=== PATIENT | male | born 1960 | race Caucasian/White ===

== ENCOUNTER → 2017-11-16 10:33 | Outpatient (CLI) | payer OTHER, SELFPAY ==
--- NOTE | 2017-11-16 11:21 | XR_ITS ---
XR hand RT min 3V HISTORY: ITS.REASON: pain ORDERING PHYSICIAN: Adrianna Flood PATIENT AGE: 57 years COMPARISON: 11/06/2014 FINDINGS: There is decrease in the joint space at the third metacarpophalangeal joint. Minimal osteophyte noted at this area as before. There is mottled density of the distal aspect of the third metacarpal with some subcortical lucency. This may be seen with avascular necrosis. This has developed since 11/06/2014. There appears to be an old fracture of the distal aspect of the fifth metacarpal. There are mild osteoarthritic changes of the first metacarpal carpal joint. IMPRESSION: 1. 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 2. Interval development of mottled density of the distal aspect of the third metatarsal nonspecific but could be seen with avascular necrosis versus developing subarticular cystic changes
--- NOTE | 2017-11-16 11:21 | XR_ITS ---
EXAM: XR lumbar spine 2-3V HISTORY: ITS.REASON: pain ORDERING PHYSICIAN: Adrianna Flood PATIENT AGE: 57 years FINDINGS: There is mild lumbar scoliosis convex right with multilevel degenerative disc disease from L1 to S1. There are endplate osteophytes also present at these levels. Posterior osteophytes are present with possible canal stenosis at L3-L4, L4-5, and L5-S1. No fracture or dislocation. No lytic or blastic change. IMPRESSION: 1. Multilevel degenerative disc disease with endplate osteophytes with suspected canal stenosis in the lower lumbar spine. 2. No acute fracture. 3. Lumbar scoliosis convex right slightly worse when compared to 09/21/2014. No other changes evident
[2017-11-16 13:49] LABS: C-Reactive Protein < 0.2 mg/L (0.0-0.9)
[2017-11-16 16:55] LABS: Erythrocyte Sedimentation Rate 24 mm/hr (0-20)
[2017-11-17 14:35] LABS: Anti-Jo-1 <0.2 AI (0.0-0.9); Anti-Smith Antibody <0.2 AI (0.0-0.9); Antichromatin Antibodies <0.2 AI (0.0-0.9); Antiscleroderma-70 Antibodies <0.2 AI (0.0-0.9); RNP Antibodies <0.2 AI (0.0-0.9); Sjogren's Anti-SS-A <0.2 AI (0.0-0.9); Sjogren's Anti-SS-B <0.2 AI (0.0-0.9)
[2017-11-17 15:48] LABS: Anti-Centromere B Antibodies <0.2 AI (0.0-0.9); Anti-DNA (DS) Ab Qn <1 IU/mL (0-9); RA Latex Turbid. 19.5 IU/mL (0.0-13.9)
[2017-11-18 15:32] LABS: Anti-Cyclic Citrullinated Pept 8 units (0-19)
== END ==
PROVIDERS: PCP Nurse Practitioner Family; Visit Provider Nurse Practitioner Family
DX: M19.90 Unspecified osteoarthritis, unspecified site (principal)
CPT/HCPCS: 72100; 73130; 85651; 86038; 86140; 86200; 86431

== ENCOUNTER → 2019-05-25 09:58 | Outpatient (CLI) | payer OTHER, SELFPAY ==
[2019-05-25 10:34] LABS: Basophils # 0.1 K/mm3 (0-0.2); Basophils % 0.4 % (0.1-2.0); Eosinophils # 0.4 K/mm3 (0.0-0.4); Eosinophils % 3.7 % (0.1-12.0); Hematocrit 49.7 % (42.0-52.0); Lymphocytes # 2.7 K/mm3 (0.7-4.5); Lymphocytes % 24.9 % (10-50); Mean Corpuscular HGB Conc 32.2 g/dL (31.8-35.4); Mean Corpuscular Hemoglobin 32.3 pg (27.0-31.2); Mean Corpuscular Volume 100.4 fl (80-94); Mean Platelet Volume 8.6 fl (7.4-10.4); Monocytes # 0.5 K/mm3 (0.1-1.0); Monocytes % 4.4 % (1.7-9.3); Neutrophils # 7.3 K/mm3 (1.8-7.8); Neutrophils % 66.6 % (37.0-80.0); Platelet Count 272 K/mm3 (142-424); Red Blood Count 4.95 M/mm3 (4.60-6.20); Red Cell Distribution Width 12.8 % (11.5-17.5)
[2019-05-25 12:13] LABS: Alanine Aminotransferase 27 U/L (12-78); Albumin Level 3.7 gm/dL (3.4-5.0); Albumin/Globulin Ratio 0.9 (1.1-1.8); Alkaline Phosphatase 124 U/L (46-116); Anion Gap 14.8 mEq/L (5-15); Aspartate Amino Transferase 19 U/L (15-37); Bilirubin,Total 0.3 mg/dL (0.2-1.0); Blood Urea Nitrogen 8 mg/dL (7-18); C-Reactive Protein 0.7 mg/dL (0.0-0.9); Calcium 8.9 mg/dL (8.5-10.1); Carbon Dioxide 26 mmol/L (21.0-32.0); Chloride 102 mmol/L (98-107); Chol/HDL Ratio 3.5 (1-3.5); Cholesterol 194 mg/dL (140-200); Creatinine,Serum 0.74 mg/dL (0.70-1.30); Estimated Glomerular Filt Rate 109 ml/min (>60); Free T4 (Free Thyroxine) 0.79 ng/dl (0.76-1.46); GFR (African American) 131 ML/MIN (>60); Globulin 3.9 gm/dl (1.3-3.2); Glucose 130 mg/dL (74-106); HDL Cholesterol 55 mg/dL (27-67); LDL Cholesterol 102 mg/dL (0-130); Potassium 3.8 mmoL/L (3.5-5.1); Sodium 139 mmol/L (136-145); Thyroid Stimulating Hormone 0.86 uIU/ml (0.358-3.740); Total Protein,Serum 7.6 gm/dL (6.4-8.2); Triglycerides 187 mg/dL (30-200); VLDL Cholesterol 37 mg/dL (0-40)
[2019-05-26 17:16] LABS: Prostate Specific Ag 1.1 ng/mL (0.0-4.0)
[2019-05-30 07:13] LABS: Testosterone,Free 8.6 pg/mL (7.2-24.0)
== END ==
PROVIDERS: Visit Provider Nurse Practitioner Family
DX: R37 Sexual dysfunction, unspecified (principal); R53.83 Other fatigue
CPT/HCPCS: 36415; 80053; 80061; 84153; 84154; 84402; 84403; 84439; 84443; 85025; 86140

== ENCOUNTER → 2019-06-12 08:39 | Outpatient (CLI) | payer OTHER, SELFPAY ==
[2019-06-12 12:37] LABS: Hemoglobin A1C 5.6 % (0.0-7.0)
[2019-06-14 08:21] LABS: Folate 16.6 ng/mL (>3.0); Vitamin B12 591 pg/mL (232-1245)
== END ==
PROVIDERS: Nurse Practitioner Family; Visit Provider Emergency Medicine
DX: R71.8 Other abnormality of red blood cells (principal); D72.829 Elevated white blood cell count, unspecified; R73.9 Hyperglycemia, unspecified
CPT/HCPCS: 36415; 82607; 82746; 83036

== ENCOUNTER → 2020-11-29 09:17 | Outpatient (CLI) | payer OTHER, SELFPAY ==
[2020-11-29 09:38] LABS: Basophils # 0.1 K/mm3 (0-0.2); Basophils % 0.6 % (0.1-2.0); Eosinophils # 0.6 K/mm3 (0.0-0.4); Eosinophils % 5.9 % (0.1-12.0); Hematocrit 45.9 % (42.0-52.0); Hemoglobin 15.1 g/dL (14.1-18.0); Lymphocytes # 2.7 K/mm3 (0.7-4.5); Lymphocytes % 26.5 % (10-50); Mean Corpuscular HGB Conc 32.9 g/dL (31.8-35.4); Mean Corpuscular Hemoglobin 31.4 pg (27.0-31.2); Mean Corpuscular Volume 95.4 fl (80-94); Mean Platelet Volume 8.5 fl (7.4-10.4); Monocytes # 0.5 K/mm3 (0.1-1.0); Monocytes % 4.5 % (1.7-9.3); Neutrophils # 6.4 K/mm3 (1.8-7.8); Neutrophils % 62.5 % (37.0-80.0); Platelet Count 264 K/mm3 (142-424); Red Blood Count 4.81 M/mm3 (4.60-6.20); Red Cell Distribution Width 12.9 % (11.5-17.5); White Blood Count 10.2 K/mm3 (4.8-10.8)
[2020-11-29 11:01] LABS: Alanine Aminotransferase 20 U/L (12-78); Albumin Level 4.4 g/dl (3.5-5.0); Albumin/Globulin Ratio 1.3 (1.1-1.8); Alkaline Phosphatase 108 U/L (38-126); Anion Gap 13.6 mEq/L (5-15); Aspartate Amino Transferase 30 U/L (17-59); Bilirubin,Total 0.2 mg/dl (0.2-1.3); Blood Urea Nitrogen 14 mg/dl (9-20); Calcium 9.4 mg/dl (8.4-10.2); Carbon Dioxide 25 mmol/L (22.0-30.0); Chloride 106 mmol/L (98-107); Chol/HDL Ratio 3.4 (1-3.5); Cholesterol 205 mg/dl (140-200); Estimated Glomerular Filt Rate 115 ml/min (>60); GFR (African American) 140 ML/MIN (>60); Globulin 3.3 g/dL (1.3-3.2); Glucose 92 mg/dl (74-100); HDL Cholesterol 61 mg/dl (40-60); Potassium 4.6 mmoL/L (3.5-5.1); Sodium 140 mmol/L (136-145); Total Protein,Serum 7.7 g/dl (6.3-8.2); Triglycerides 132 mg/dl (30-150); VLDL Cholesterol 26 mg/dL (0-40)
[2020-11-29 11:12] LABS: Direct LDL Cholesterol 123.89 mg/dL (100-129)
== END ==
PROVIDERS: Visit Provider Nurse Practitioner Family
DX: R53.83 Other fatigue (principal); N52.1 Erectile dysfunction due to diseases classified elsewhere; I27.20 Pulmonary hypertension, unspecified
CPT/HCPCS: 36415; 80053; 80061; 85025

== ENCOUNTER 2023-11-04 20:20 | Outpatient (CLI) | payer OTHER, SELFPAY ==
[2023-11-04 19:38] LABS: Basophils # 0.1 K/mm3 (0-0.2); Basophils % 0.7 % (0.1-2.0); Eosinophils # 0.5 K/mm3 (0.0-0.4); Eosinophils % 5.9 % (0.1-12.0); Hemoglobin 14.5 g/dL (14.1-18.0); Lymphocytes # 3.4 K/mm3 (0.7-4.5); Mean Corpuscular HGB Conc 31.5 g/dL (31.8-35.4); Mean Corpuscular Hemoglobin 32.3 pg (27.0-31.2); Mean Corpuscular Volume 102.3 fl (80-94); Mean Platelet Volume 9.8 fl (7.4-10.4); Monocytes # 0.5 K/mm3 (0.1-1.0); Monocytes % 5.9 % (1.7-9.3); Neutrophils # 4.6 K/mm3 (1.8-7.8); Neutrophils % 50.5 % (37.0-80.0); Platelet Count 256 K/mm3 (142-424); White Blood Count 9.1 K/mm3 (4.8-10.8)
[2023-11-04 19:54] LABS: Alanine Aminotransferase 34 U/L (12-78); Albumin Level 4.3 g/dl (3.5-5.0); Albumin/Globulin Ratio 1.5 (1.1-1.8); Alkaline Phosphatase 109 U/L (38-126); Anion Gap 9.2 mEq/L (5-15); Aspartate Amino Transferase 39 U/L (17-59); Bilirubin,Total 0.4 mg/dl (0.2-1.3); Blood Urea Nitrogen 17 mg/dl (9-20); Calcium 9.3 mg/dl (8.4-10.2); Carbon Dioxide 30 mmol/L (22.0-30.0); Chloride 103 mmol/L (98-107); Chol/HDL Ratio 4.4 (1-3.5); Cholesterol 204 mg/dl (140-200); Estimated Glomerular Filt Rate 114 ml/min (>60); GFR (African American) 138 ML/MIN (>60); Globulin 2.9 g/dL (1.3-3.2); Glucose 123 mg/dl (74-100); HDL Cholesterol 46 mg/dl (40-60); Potassium 4.2 mmoL/L (3.5-5.1); Sodium 138 mmol/L (136-145); Total Protein,Serum 7.2 g/dl (6.3-8.2); Triglycerides 129 mg/dl (30-150); VLDL Cholesterol 26 mg/dL (0-40)
[2023-11-04 20:08] LABS: Direct LDL Cholesterol 124.73 mg/dL (100-129)
[2023-11-04 20:12] LABS: 25-OH Vitamin D, Total 35.5 ng/mL (30-100)
[2023-11-04 20:25] LABS: Prostate Specific Ag Screen 0.6 ng/ml (0.0-4.0); Thyroid Stimulating Hormone 1.15 uIU/mL (0.465-4.68)
[2023-11-04 21:11] LABS: Hemoglobin A1C 5.9 % (4.0-6.0)
== END 2023-11-04 23:59 ==
LOC: LAB.DROPOF 20:20
PROVIDERS: PCP Family Medicine; Visit Provider Family Medicine
DX: R53.83 Other fatigue (principal); I70.612 Atherosclerosis of nonbiological bypass graft(s) of the extremities with intermittent claudication, left leg; T82.858A Stenosis of other vascular prosthetic devices, implants and grafts, initial encounter; N52.9 Male erectile dysfunction, unspecified; Z12.5 Encounter for screening for malignant neoplasm of prostate; Z79.899 Other long term (current) drug therapy
CPT/HCPCS: 80053; 80061; 82306; 83036; 84443; 85025; G0103